=== PATIENT | male | born 1990 | race Caucasian/White ===

== ENCOUNTER 2019-01-17 09:23 | Emergency (ER) | payer MEDICAID ==
[2019-01-17 09:29] VITALS: BP 119/63
--- NOTE | 2019-01-17 09:45 | EDPHY ---
H & P Time Seen by Provider: 01/17/19 09:37 HPI/ROS: CHIEF COMPLAINT: "I have an infection on my forehead" HISTORY OF PRESENT ILLNESS: 28-year-old immunocompetent male, no known history of cutaneous MRSA, out-of-date tetanus, complaining of tender erythematous lesion to his forehead which she punctured yesterday but notes progressive erythema. No further drainage. He notes dependent edema as well with no dependent erythema. Denies: Headache, nausea, vomiting, flu-like symptoms, ocular irritation, fever , chills, pain with extraocular movements, visual abnormality, other facial lesions. PHYSICAL EXAM (Prior to examination, patient consented to physical exam, hands were washed and my usual and customary physical exam procedures followed) 1) GENERAL: Well-developed, well-nourished, alert and oriented. Appears to be in no acute distress. 2) HEAD: Normocephalic 3) HEENT: sclera anicteric 4) LUNGS: Breathing comfortably. 5) SKIN: [ The patient's forehead at his hairline he has an erythematous for ocular lesion which is nondraining. It is tender. Nonvesicular. There are no other lesions. No other evidence to suggest facial zoster. Negative Muñoz sign. No year lesions no scalp lesions. No evidence of [place] . No periorbital erythema, no proptosis, no pain with extraocular movements or limitations extraocular movements. Smoking Status: Current every day smoker Constitutional: Initial Vital Signs Temperature (C) 36.8 C 01/17/19 09:25 Heart Rate 70 01/17/19 09:25 Respiratory Rate 14 01/17/19 09:25 Blood Pressure 119/63 01/17/19 09:25 O2 Sat (%) 97 01/17/19 09:25 O2 Delivery Mode Room Air Allergies/Adverse Reactions: No Known Allergies Allergy (Unverified 01/17/19 09:25) Home Medications: Medication Instructions Recorded Cephalexin [Keflex] 500 mg PO TID 7 Days cap 01/17/19 Sulfamethox/Tmp 800/160 mg 1 tab PO BID@1000,2200 7 Days tab 01/17/19 [Bactrim Ds] oxyCODONE/APAP 5/325 [Percocet 1 tab PO Q6 #5 tab 01/17/19 5/325] MDM/Departure - [facility] [place] ED Course/Re-evaluation: A recommend warm compresses. Will hold on incision drainage at this time as the areas indurated without fluctuance. Doubt facial zoster. He notes history of similar. Notes no known history of cutaneous MRSA however given his history of recommended dual therapy with Bactrim and Keflex. Tetanus has been updated. Today is Thursday. He has an appointment [facility] which I recommend he keep. Patient feels comfortable being discharged. All questions and concerns addressed by myself. Patient given my usual and customary discharge precautions and instructions regarding their clinical impression. Care of patient under supervision of secondary supervising physician Dr Garcia . - Depart Disposition: Home, Routine, Self-Care Clinical Impression: Carbuncle and furuncle of face Condition: Good Instructions: Furunculosis and Carbunculosis (ED) Additional Instructions: Apply warm packs to the area 4-5 times per day. Do not apply heating pads. Do not pick or puncture the area. Prescriptions: Cephalexin [Keflex] 500 mg PO TID 7 Days cap oxyCODONE/APAP 5/325 [Percocet 5/325] 1 tab PO Q6 #5 tab Sulfamethox/Tmp 800/160 mg [Bactrim Ds] 1 tab PO BID@1000,2200 7 Days tab Referrals: [facility],. [Clinic] - 1 day without fail
[2019-01-17] MEDS ORDERED: TDAP ADULT 0.5 ML INJ (BOOSTRIX) IM ONE (09:46)
== END 2019-01-17 09:59 | disposition home or self-care (01) ==
DX: L02.03 Carbuncle of face (principal); L02.02 Furuncle of face; Z23 Encounter for immunization

== ENCOUNTER 2019-01-20 02:56 | Inpatient (IN) | payer MEDICAID ==
--- NOTE | 2019-01-20 03:09 | EDPHY ---
H & P Stated Complaint: bilat eye swelling Time Seen by Provider: 01/20/19 03:09 HPI/ROS: HPI CHIEF COMPLAINT: Swelling around both eyes. HISTORY OF PRESENT ILLNESS: Patient is a 28-year-old male, he recently had a I+ D done yesterday on a forehead abscess at [facility]. He is on Bactrim and Keflex. However noticed over last 12 hr he has had increasing swelling around both of his eyes, but is painful, as well as swelling to his forehead. No fever. Does complain of pain around both of his eyes. No eye pain directly to his eyes. However can feel soft tissue swelling. He also reports increasing swelling and pain of the forehead. Denies fever. Does complain of 8/10 forehead and periorbital swelling and pain. Past Medical History: Denies significant medical history Past Surgical History: Denies significant surgical history except for recent I+ D of the forehead. Social History: Smokes tobacco, denies illicit drugs or alcohol. Family History: Noncontributory ROS REVIEW OF SYSTEMS: 10 Systems were reviewed and negative with the exception of the elements mentioned in the history of present illness. Exam Constitutional triage nursing summary reviewed, vital signs reviewed, awake/ alert. Eyes significant periorbital swelling. Warm to touch. Red. Tender. Also tender palpation crossed forehead. No crepitus. Mid forehead there is recent I and D site. No pus. Extra movements intact. No pain with range of motion. HENT normal inspection, atraumatic, moist mucus membranes, no epistaxis, neck supple/ no meningismus, no raccoon eyes. Respiratory clear to auscultation bilaterally, normal breath sounds, no respiratory distress, no wheezing. Cardiovascular rate normal, regular rhythm, no murmur, no edema, distal pulses normal. Gastrointestinal soft, non-tender, no rebound, no guarding, normal bowel sounds, no distension, no pulsatile mass. Genitourinary no CVA tenderness. Musculoskeletal no midline vertebral tenderness, full range of motion, no calf swelling, no tenderness of extremities, no meningismus, good pulses, neurovascularly intact. Skin pink, warm, & dry, no rash, skin atraumatic. See above. Neurologic awake, alert and oriented x 3, AAOx3, moves all 4 extremities equally, motor intact, sensory intact, CN II-XII intact, normal cerebellar, normal vision, normal speech. Psychiatric normal mood/affect. Heme/Lymph/Immune no lymphadenopathy. Differential Diagnosis: Includes but is not limited to in a particular order facial cellulitis, facial abscess, preseptal cellulitis, orbital cellulitis Medical Decision Making: Plan for this patient IV establishment IV blood work, blood cultures, IV vanc IV Zosyn, CT maxillofacial with IV contrast. Admit to the hospitalist service facial cellulitis. Re-evaluation: CT scan maxillofacial with IV contrast faxed me by direct Radiology at time 4: 54 a.m. Diffuse facial soft tissue swelling bilaterally cellulitis no abscess seen Plan for admission the hospital IV vancomycin IV Zosyn. Labs reviewed no high white count, elevated CRP. ESR normal. Patient agrees for admission. Admit to Dr. Elam Source: Patient - Personal History Current Tetanus/Diphtheria Vaccine: Yes Current Tetanus Diphtheria and Acellular Pertussis (TDAP): Yes - Medical/Surgical History Hx Asthma: No Hx Chronic Respiratory Disease: No Hx Diabetes: No Hx Cardiac Disease: No Hx Renal Disease: No Hx Cirrhosis: No Hx Alcoholism: No Hx HIV/AIDS: No Hx Splenectomy or Spleen Trauma: No Other PMH: cyst removals - Social History Smoking Status: Current every day smoker Constitutional: Initial Vital Signs Temperature (C) 36.9 C 01/20/19 03:01 Heart Rate 81 01/20/19 03:01 Respiratory Rate 16 01/20/19 03:01 Blood Pressure 109/55 L 01/20/19 03:01 O2 Sat (%) 95 01/20/19 03:01 O2 Delivery Mode Room Air Allergies/Adverse Reactions: No Known Allergies Allergy (Verified 01/20/19 03:03) Home Medications: Medication Instructions Recorded Cephalexin [Keflex (*)] 500 mg PO TID 01/20/19 Sulfamethox/Tmp 800/160 mg 1 tab PO BID 01/20/19 [Bactrim Ds] oxyCODONE/APAP 5/325 [Percocet 1 tab PO Q6HRS PRN 01/20/19 5/325 (*)] Medical Decision Making - Data Points Laboratory Results: Laboratory Results 01/20/19 03:25 01/20/19 03:25 Microbiology Results: MICROBIOLOGY 01/20/19 03:25 Blood Blood Culture - Preliminary 01/20/19 03:15 Blood Blood Culture - Preliminary Medications Given: Hydrocodone Bitart/Acetaminophen ([place] 5/325) 1 - 2 tab PO Q4HRS PRN PRN Reason: Pain, Moderate Able to Take PO Stop: 01/30/19 07:35 Last Admin: 01/21/19 20:01 Dose: 1 tab Piperacillin/Tazobactam/Dextrose (Zosyn 3.375 Gm (Premix)) 50 mls @ 100 mls/hr IV Q6HRS BEATRICE PRN Reason: Protocol Stop: 02/19/19 11:14 Last Admin: 01/21/19 17:41 Dose: 50 mls Vancomycin/Sodium Chloride (Vancomycin 1 Gm (Premix)) 250 mls @ 250 mls/hr IV Q12H BEATRICE Stop: 02/19/19 15:59 Last Admin: 01/21/19 16:24 Dose: 250 mls Ketorolac Tromethamine (Toradol) 15 mg IVP Q6HRS BEATRICE Stop: 01/26/19 17:59 Last Admin: 01/21/19 17:41 Dose: 15 mg Lorazepam (Ativan) 0.5 - 1 mg PO Q8HRS PRN PRN Reason: Anxiety, Able to Take PO Stop: 07/19/19 07:35 Last Admin: 01/20/19 08:57 Dose: 0.5 mg Tramadol HCl (Ultram) 50 mg PO Q6HRS [facility] Stop: 07/20/19 17:59 Last Admin: 01/21/19 17:40 Dose: 50 mg Discontinued Medications Hydromorphone HCl (Dilaudid) 0.5 mg IVP EDNOW ONE Stop: 01/20/19 03:15 Last Admin: 01/20/19 03:26 Dose: 0.5 mg Hydromorphone HCl (Dilaudid) 0.5 mg IVP EDNOW ONE Stop: 01/20/19 06:00 Last Admin: 01/20/19 06:03 Dose: 0.5 mg Hydromorphone HCl (Dilaudid) 0.5 mg IVP EDNOW ONE Stop: 01/20/19 06:03 Last Admin: 01/20/19 06:04 Dose: Not Given Sodium Chloride (Ns) 1,000 mls @ 0 mls/hr IV EDNOW ONE; Wide Open PRN Reason: Protocol Stop: 01/20/19 03:15 Last Admin: 01/20/19 03:35 Dose: 1,000 mls Vancomycin/Sodium Chloride (Vancomycin 1 Gm (Premix)) 250 mls @ 250 mls/hr IV EDNOW ONE PRN Reason: Protocol Stop: 01/20/19 04:15 Last Admin: 01/20/19 04:04 Dose: 250 mls Piperacillin/Tazobactam/Dextrose (Zosyn (Premix)) 100 mls @ 200 mls/hr IV EDNOW ONE PRN Reason: Protocol Stop: 01/20/19 03:45 Last Admin: 01/20/19 05:10 Dose: 100 mls Ketorolac Tromethamine (Toradol) 15 mg IVP Q6HRS PRN PRN Reason: Pain, Breakthrough Stop: 01/25/19 11:59 Last Admin: 01/20/19 10:41 Dose: 15 mg Ondansetron HCl (Zofran) 4 mg IVP EDNOW ONE Stop: 01/20/19 03:15 Last Admin: 01/20/19 03:26 Dose: 4 mg Departure - Departure Disposition: [facility] Clinical Impression: Facial cellulitis Condition: Fair
[2019-01-20] MEDS ORDERED: NS 1,000 ML IV ONE (03:14)
[2019-01-20] MEDS ORDERED: ONDANSETRON 4 MG/2 ML VIAL IVP ONE (03:14)
[2019-01-20] MEDS ORDERED: HYDROmorphONE/DILAUDID 2 MG/ML INJ IVP ONE ×3 (03:14→06:02)
[2019-01-20] MEDS ORDERED: PIPERACILLIN/TAZO 4.5 GM/DEX 100 ML IV ONE (03:16)
[2019-01-20] MEDS ORDERED: VANCOMYCIN HCL/NORMAL SALINE 250 ML IV ONE (03:16)
[2019-01-20 03:49] LABS: PLATELET COUNT 179 10^3/uL (150-400)
[2019-01-20] MEDS ORDERED: IOPAMIDOL (ISOVUE-300) 100 ML BTL ONE (04:22)
[2019-01-20] MEDS ORDERED: ONDANSETRON DISINTEGRATING 4 MG TAB PO PRN (07:36)
[2019-01-20] MEDS ORDERED: NICOTINE 21 MG/24 HR PATCH TD PRN (07:36)
[2019-01-20] MEDS ORDERED: PROMETHAZINE HCL 25 MG/ML INJ IVP PRN (07:36)
[2019-01-20] MEDS ORDERED: ACETAMINOPHEN 325 MG TAB PO PRN (07:36)
[2019-01-20] MEDS ORDERED: LORazepam 0.5 MG TAB PO PRN (07:36)
[2019-01-20] MEDS ORDERED: ONDANSETRON 4 MG/2 ML VIAL IVP PRN (07:36)
[2019-01-20] MEDS: HYDROCODONE/APAP 5/325 TAB PO PRN (08:57)
--- NOTE | 2019-01-20 09:19 | PDGENHP ---
History and Physical - Chief Complaint Facial swelling and pain - History of Present Illness Source-patient provides history is a reliable historian. EMR was reviewed and case discussed with ED provider. HPI - 28-year-old gentleman with no significant past medical history presents emergency department today with complaints of worsening swelling in pressure around his eyes and face. Patient was seen in the emergency department on 01/17 with complaints possible pimple which he tried to rupture. Patient had increasing pain swelling erythema around the site. It was felt that patient not have active abscess and so was discharged with Keflex Bactrim and recommendations for warm compress and follow-up at [facility]. On 2018 patient reports he went to his appointment no changes were made to his medications or treatment plan. He returned the following day with complaints of worsening pain and extension of erythema. At which point patient underwent incision and drainage. Patient was advised to continue his oral antibiotics which he states he did. Patient presents to the emergency department with complaints of significant swelling, pain, erythema now affecting his eyes. Patient denies any ocular pain with movement. He does reports some distorted vision due to his swelling of his eyelids and limited mobility. He denies any fevers or chills. He does note a little bit of a headache. He also notes some pressure sensation and itching sensation when he closes his eyes. Symptoms resolved when the his eyelids are open and patient is sitting upright. Patient reports that he has had 3 "cysts" I&D in the past 1 behind his right ear, 1 on his clavicle and 1 on close to his buttocks. Patient reports he was given antibiotics for these incidences. He denies any known history of MRSA. History Information - Allergies/Home Medication List Allergies/Adverse Reactions: No Known Allergies Allergy (Verified 01/20/19 03:03) Home Medications: Amoxicillin 01/20/19 [Last Taken Unknown] I have personally reviewed and updated: family history, medical history, social history, surgical history - Past Medical History Additional medical history: Cutaneous abscesses (postauricular, left clavicle, gluteal). Patient denies any known MRSA infections. Tobacco dependence - Surgical History Additional surgical history: I&D as above - Family History Additional family history: Father-heart disease - Social History Smoking Status: Current every day smoker Tobacco Use: Greater than 1 pack/day (Approximately 1 pack per day.) Drug Use: None, Marijuana Review of Systems Review of Systems: ROS: 10pt was reviewed & negative except for what was stated in HPI & below ( See HPI) Physical Exam Physical Exam: Selected Entries 01/17/19 09:25 Blood Pressure Automatic Method Heart Rate 70 Respiratory 14 Rate O2 Sat (%) 97 Temperature (C) 36.8 C Blood Pressure 119/63 Mean Arterial 81 Pressure (MAP) O2 Delivery Room Air Mode Temperature Oral Source Temp Pulse Resp BP Pulse Ox 36.6 C 60 18 113/73 93 01/20/19 06:34 01/20/19 06:34 01/20/19 06:34 01/20/19 06:34 01/20/19 06:34 Constitutional: no apparent distress, appears nourished, uncomfortable, other ( Patient is sitting up in bed. Does appear uncomfortable. Both eyes in surrounding tissues are erythematous and edematous.) Eyes: PERRL (Left pupil reactive. Limited evaluation of the right eye due to eyelid swelling.), anicteric sclera, EOMI (Able to appreciate intact horizontal and vertical movement although limited as above.) Ears, Nose, Mouth, Throat: no oral mucosal ulcers, other (No nasal discharge.) Cardiovascular: regular rate and rhythym, no murmur, rub, or gallop, pulses symmetric bilaterally, No edema Peripheral Pulses: 2+: dorsalis-pedis (R), dorsalis-pedis (L) Respiratory: no respiratory distress, no rales or rhonchi, clear to auscultation , No inspiratory crackles Gastrointestinal: normoactive bowel sounds, soft, non-tender abdomen, no palpable masses, No distension Genitourinary: no bladder tenderness, No gonzales in urethra Skin: warm, other (Erythema and edema surrounding both eyelids.) Musculoskeletal: full muscle strength, other (Patient sits up independently moves all extremities.) Neurologic: AAOx3, sensation intact bilaterally, other (Grossly nonfocal exam.) , No facial droop Psychiatric: interacting appropriately, not encephalopathic, thought process linear, anxious, other (Patient is a little flustered with his current condition and becomes a little frustrated when he learned that he is not supposed to leave to smoke..) Lab Data & Imaging Review 01/20/19 03:25 01/20/19 03:25 WBC 7.15 10^3/uL (3.80-9.50) 01/20/19 03:25 RBC 4.61 10^6/uL (4.40-6.38) 01/20/19 03:25 Hgb 14.7 g/dL (13.7-17.5) 01/20/19 03:25 Hct 41.7 % (40.0-51.0) 01/20/19 03:25 MCV 90.5 fL (81.5-99.8) 01/20/19 03:25 MCH 31.9 pg (27.9-34.1) 01/20/19 03:25 MCHC 35.3 g/dL (32.4-36.7) 01/20/19 03:25 RDW 12.5 % (11.5-15.2) 01/20/19 03:25 Plt Count 179 10^3/uL (150-400) 01/20/19 03:25 MPV 9.7 fL (8.7-11.7) 01/20/19 03:25 Neut % (Auto) 62.2 % (39.3-74.2) 01/20/19 03:25 Lymph % (Auto) 27.1 % (15.0-45.0) 01/20/19 03:25 [place] % (Auto) 8.1 % (4.5-13.0) 01/20/19 03:25 Eos % (Auto) 1.7 % (0.6-7.6) 01/20/19 03:25 Baso % (Auto) 0.6 % (0.3-1.7) 01/20/19 03:25 Nucleat RBC Rel Count 0.0 % (0.0-0.2) 01/20/19 03:25 Absolute Neuts (auto) 4.45 10^3/uL (1.70-6.50) 01/20/19 03:25 Absolute Lymphs (auto) 1.94 10^3/uL (1.00-3.00) 01/20/19 03:25 Absolute Monos (auto) 0.58 10^3/uL (0.30-0.80) 01/20/19 03:25 Absolute Eos (auto) 0.12 10^3/uL (0.03-0.40) 01/20/19 03:25 Absolute Basos (auto) 0.04 10^3/uL (0.02-0.10) 01/20/19 03:25 Absolute Nucleated RBC 0.00 10^3/uL (0-0.01) 01/20/19 03:25 Immature Gran % 0.3 % (0.0-1.1) 01/20/19 03:25 Immature Gran # 0.02 10^3/uL (0.00-0.10) 01/20/19 03:25 ESR 12 MM/HR (0-15) 01/20/19 03:25 VBG Lactic Acid 0.9 mmol/L (0.7-2.1) 01/20/19 03:25 Sodium 139 mEq/L (135-145) 01/20/19 03:25 Potassium 4.3 mEq/L (3.5-5.2) 01/20/19 03:25 Chloride 104 mEq/L (97-110) 01/20/19 03:25 Carbon Dioxide 22 mEq/l (22-31) 01/20/19 03:25 Anion Gap 13 mEq/L (6-14) 01/20/19 03:25 BUN 8 mg/dL (7-23) 01/20/19 03:25 Creatinine 1.0 mg/dL (0.7-1.3) 01/20/19 03:25 Estimated GFR > 60 01/20/19 03:25 Glucose 93 mg/dL (70-100) 01/20/19 03:25 Calcium 10.0 mg/dL (8.5-10.4) 01/20/19 03:25 C-Reactive Protein 11.3 mg/L (<10.0) H 01/20/19 03:25 Imaging Review: CT of the Facial Bones With Contrast 0433 hours History: Rule out neck mass. Technique: Spiral imaging was obtained through the facial bones during the administration of 75 mL Isovue-300 IV contrast. Images were constructed in multiple planes. Dose reduction techniques were utilized. Findings: There is preseptal soft tissue swelling and thickening over the orbits bilaterally as well as crossing midline over the inferior frontal bone and extending to the upper maxillary region bilaterally without evidence of focal abscess collection. There is no posterior extension into the intraconal or extraconal fat around the orbits. Minimal mucosal thickening is noted inferior right maxillary sinus with some dental disease identified associated with the right first molar off the alveolar ridge. The patient has had previous root canal surgery left first molar with minimal erosion at the roots. The remaining dental structures are relatively normal without significant erosions. The visualized cerebral parenchyma is normal. Normal-appearing subcentimeter lymph nodes are seen within the soft tissues upper neck visualized. No significant lymphadenopathy is appreciated. The parapharyngeal soft tissues are symmetric without evidence of mass. The vallecula and piriform sinuses also appear to be normal. The soft palate has a normal contour. The parotid and submandibular glands are normal in appearance. There is normal enhancement of the vasculature. There is no evidence of underlying stenosis involving the carotid system. Impression: 1. Preseptal and anterior frontal soft tissue edema suggestive of cellulitis with underlying abscess , erosion, or significant sinus disease. Preliminary report given to Emergency Department physician, Cezar Henderson MD at 0454 hour, 2018. Final report concurs with initial preliminary interpretation. DR1 Dictated By: Zenon Temple MD Visualized and Interpreted Chest x-ray results: Yes Assessment & Plan Assessment: 28-year-old gentleman with no significant past medical history presents emergency department today with complaints of worsening swelling in pressure around his eyes and face. Facial cellulitis (Acute) - despite dual oral antibiotics on outpatient basis paste with progressively worsening symptoms. patient started on vancomycin Zosyn in the emergency department. Plan to continue this at this time. Cultures were obtained. Patient does not meet SIRS criteria. Vitals otherwise acceptable. Acute pain - will try to avoid IV narcotics. Price p.r.n.. Toradol and Tylenol p.r.n.. Tobacco dependence - discussed with patient that should not leave the hospital floor to smoke. Offered nicotine gum which patient reports he developed nausea. He is amenable to a nicotine patch however. Cessation will be encouraged. FEN - status post IV fluid in the emergency department. Patient is drinking well on his own. Diet as tolerated. Electrolytes currently acceptable do not require replacement. PPX-SCDs. Holding anticoagulation pending reassessment of patient's cellulitis. Patient low risk overall for VTE. Encourage mobilization. Cor status-full Disposition-patient admitted to inpatient status on the [facility] floor anticipating greater than 2 night stay due to severity of patient's cellulitis will need to monitor the patient closely and continue with IV antibiotics.
[2019-01-20] MEDS ORDERED: KETOROLAC 15 MG/1 ML SDV IVP PRN (09:30)
[2019-01-20] MEDS: PIPERACILLIN/TAZO 3.375 GM/DEX 50 ML IV SCH ×2 (10:41→16:52)
--- NOTE | 2019-01-20 10:48 | ASMTCMCOM ---
CM Note CM Note Notes: Pts case discussed w/ Dr. Vanegas. Pt is a 28 y/o man admitted for facial cellulitis. Pt is currently on ivabx. It is uncertain if pt will need ivabx at time of d/c. However, pt will most likely d/c independent without any needs. CM available for changes. Plan: Independent Date Signed: 01/20/2019 10:46 AM Electronically Signed By:ELIEZER Brooks
--- NOTE | 2019-01-20 13:23 | PDMN ---
Medical Necessity Medical necessity: Pt meets IP criteria per & MCG M-70; est los >2 mn for eval/tx of facial cellulitis w/failed outpatient tx & progressively worsening swelling around eyes/face w/distorted vision & limited mobility; admit for further monitoring & IV abx; per H&P & order 01/20/19
[2019-01-20] MEDS ORDERED: LORazepam 1 MG TAB PO PRN (16:22)
[2019-01-20] MEDS: VANCOMYCIN HCL/NORMAL SALINE 250 ML IV SCH (16:52)
--- NOTE | 2019-01-20 17:09 | HOSPPROG ---
Hospitalist Progress Note Assessment/Plan: Evening hospitalist rounds Patient napping when I arrived at the room but did arouse though slowly. He has very little to say at this point other than that he feels like hell No new symptoms No appetite has not eaten yet today Vitals are all stable Still with significant erythema and edema of all eyelids, forehead scalp wound swollen but looks okay Abdomen normal Respirations appear normal Continue antibiotics Objective: Vital Signs Temp Pulse Resp BP Pulse Ox 36.7 C 69 12 92/71 L 98 01/20/19 15:52 01/20/19 15:52 01/20/19 15:52 01/20/19 15:52 01/20/19 15:52 ICD10 Worksheet Patient Problems: Problems Problem Status Onset Facial cellulitis Acute
[2019-01-21] MEDS: PIPERACILLIN/TAZO 3.375 GM/DEX 50 ML IV SCH ×5 (00:03→23:28)
[2019-01-21] MEDS: VANCOMYCIN HCL/NORMAL SALINE 250 ML IV SCH ×2 (04:22→16:24)
[2019-01-21] MEDS: HYDROCODONE/APAP 5/325 TAB PO PRN ×3 (09:27→20:01)
--- NOTE | 2019-01-21 15:15 | HOSPPROG ---
Hospitalist Progress Note Assessment/Plan: Evening hospitalist rounds Patient napping when I arrived at the room but did arouse though slowly. He has very little to say at this point other than that he feels like hell No new symptoms No appetite has not eaten yet today Vitals are all stable Still with significant erythema and edema of all eyelids, forehead scalp wound swollen but looks okay Abdomen normal Respirations appear normal Continue antibiotics Objective: Vital Signs Temp Pulse Resp BP Pulse Ox 36.6 C 66 14 103/61 96 01/21/19 07:24 01/21/19 07:24 01/21/19 07:24 01/21/19 07:24 01/21/19 07:24 ICD10 Worksheet Patient Problems: Problems Problem Status Onset Facial cellulitis Acute
--- NOTE | 2019-01-21 15:19 | HOSPPROG ---
Hospitalist Progress Note Assessment/Plan: DIAGNOSES: * Acute facial cellulitis and abscess, status post drainage of abscess in the outpatient setting the day before this admission * Gram stain from abscess showing evidence of likely Staph aureus with final culture pending PLANS: * Continue vancomycin at this time * Pain management SUBJECTIVE: Still quite a bit of facial pain with mild improvements since yesterday No other new symptoms, eating but appetite poor so far OBJECTIVE Vitals reviewed: Stable without fever so far Exam: alert oriented HEENT/skin: He is now able to open his eyes so that I can is examine his eyes which appear normal. Still however with significant frontal periorbital and malodor cellulitis resps not labored lungs clear BSs heart regular abd soft nondistended nontender, bowel sounds present limbs warm, no edema iv site ok I contacted [facility] today and reviewed culture results. The only information have back so far from his abscess is Gram stain showing gram-positive cocci in pairs suggesting staph infection. Objective: Vital Signs Temp Pulse Resp BP Pulse Ox 36.6 C 66 14 103/61 96 01/21/19 07:24 01/21/19 07:24 01/21/19 07:24 01/21/19 07:24 01/21/19 07:24 ICD10 Worksheet Patient Problems: Problems Problem Status Onset Facial cellulitis Acute
[2019-01-21] MEDS: traMADol 50 MG TAB PO SCH ×2 (17:40→23:28)
[2019-01-21] MEDS: KETOROLAC 15 MG/1 ML SDV IVP SCH ×2 (17:41→23:28)
[2019-01-22] MEDS: VANCOMYCIN HCL/NORMAL SALINE 250 ML IV SCH ×2 (04:15→17:08)
[2019-01-22] MEDS: PIPERACILLIN/TAZO 3.375 GM/DEX 50 ML IV SCH ×4 (05:26→23:06)
[2019-01-22] MEDS: KETOROLAC 15 MG/1 ML SDV IVP SCH ×4 (05:28→23:05)
[2019-01-22] MEDS: traMADol 50 MG TAB PO SCH ×4 (05:28→23:06)
--- NOTE | 2019-01-22 13:00 | HOSPPROG ---
Hospitalist Progress Note Assessment/Plan: 28 yo M w facial cellulitis that failed outpt management cellulitis: continue vanc zosyn add'l day blood cx neg here no abscess on ct- intrp by me pain: tramadol/toradol proph: ambulatory dispo: inpt Subjective: states face has improved steadily since arrival. ct images reviewed /interp by me Objective: Vital Signs Temp Pulse Resp BP Pulse Ox 36.7 C 50 L 16 129/93 H 95 01/22/19 08:00 01/22/19 08:00 01/22/19 08:00 01/22/19 08:00 01/22/19 08:00 01/21/19 01/22/19 01/23/19 05:59 05:59 05:59 Intake Total 800 Balance 800 ICD10 Worksheet Patient Problems: Problems Problem Status Onset Facial cellulitis Acute
[2019-01-23] MEDS: VANCOMYCIN HCL/NORMAL SALINE 250 ML IV SCH (04:06)
[2019-01-23] MEDS: traMADol 50 MG TAB PO SCH (05:20)
[2019-01-23] MEDS: KETOROLAC 15 MG/1 ML SDV IVP SCH (05:20)
[2019-01-23] MEDS: PIPERACILLIN/TAZO 3.375 GM/DEX 50 ML IV SCH (05:20)
[2019-01-23 08:17] VITALS: BP 124/87
--- NOTE | 2019-01-23 09:27 | HOSPPROG ---
Hospitalist Progress Note Assessment/Plan: 28 yo M w facial cellulitis that failed outpt management cellulitis: continue vanc zosyn add'l day blood cx neg here no abscess on ct- intrp by me complete course w keflex bactrim pain: tramadol/toradol proph: ambulatory dispo: home today see dc summary Subjective: afebrile Objective: Vital Signs Temp Pulse Resp BP Pulse Ox 36.6 C 70 16 124/87 H 94 01/23/19 08:00 01/23/19 08:00 01/23/19 08:00 01/23/19 08:00 01/23/19 08:00 Laboratory Results 01/22/19 14:17 01/22/19 01/23/19 01/24/19 05:59 05:59 05:59 Intake Total 800 3100 Output Total 900 Balance 800 2200 - Physical Exam Constitutional: no apparent distress, appears nourished Eyes: PERRL, anicteric sclera Ears, Nose, Mouth, Throat: other (facial cellulitis essentially resolved) Cardiovascular: regular rate and rhythym, no murmur, rub, or gallop Respiratory: no respiratory distress, no rales or rhonchi Gastrointestinal: normoactive bowel sounds Genitourinary: no bladder fullness, No gonzales in urethra Skin: warm, normal color Musculoskeletal: full muscle strength Neurologic: AAOx3 ICD10 Worksheet Patient Problems: Problems Problem Status Onset Facial cellulitis Acute
--- NOTE | 2019-01-23 13:59 | GDS ---
[f rep st] DISCHARGE SUMMARY DISCHARGE DIAGNOSES: Facial cellulitis with Staph. HISTORY OF PRESENT ILLNESS: Please see admission history and physical by Mitra Elam MD. The zack ent had a facial cellulitis and was started on Keflex and Bactrim. He was seen in followup at [facility], where a bedside I and D was performed. Subsequently, patient acutely worsened. HOSPITAL COURSE: He received 4 days of vancomycin and Zosyn here. He was discharged home to [facility] a course of Keflex and Bactrim that were initiated, that will cover MRSA, as well as routine skin p athogens. Blood cultures were negative while here. He was afebrile, did not have sepsis. /[id number]/MODL
== END 2019-01-23 10:30 | disposition home or self-care (01) | DRG 383 ==
LOC: F3E 06:25 → OBSVTOIN 07:40
PROVIDERS: ADMIT Family Medicine; ATTEND Family Medicine
DX: L03.211 Cellulitis of face (principal); B95.8 Unspecified staphylococcus as the cause of diseases classified elsewhere; F17.210 Nicotine dependence, cigarettes, uncomplicated
CPT/HCPCS: 96365; J1170; J1885; J2405; J2543; J3370; Q9967